=== PATIENT | female | born 1985 | race African-American/Black ===

== ENCOUNTER 2020-09-21 22:31 | Emergency (ER) | payer OTHER ==
[~2020-09-21] VITALS: Ht 162.6 cm; Wt 74.8 kg
[~2020-09-21 22:31] MED LIST: AUGMENTIN 875-1 EACH PO; CIPROFLOXACIN500 M1 PO; MOTRIN IB200 MG PO; PHENERGAN 25 MG25 M1 PO; TYLENOL EX-STR500 M1 PO; TYLENOL325 MG PO; ULTRAM 50MG TAB50 MG PO
[2020-09-21] MEDS ORDERED: ULTRAM 50MG TAB50 MG PO (23:06)
[2020-09-22 00:20] VITALS: BP 120/68
== END 2020-09-22 00:20 | disposition home or self-care (01) ==
LOC: ER 22:31
DX: S93.401A Sprain of unspecified ligament of right ankle, initial encounter (principal); Z88.6 Allergy status to analgesic agent; X58.XXXA Exposure to other specified factors, initial encounter; Y93.89 Activity, other specified; Y92.89 Other specified places as the place of occurrence of the external cause; Y99.8 Other external cause status